=== PATIENT | female | born 1980 | race Caucasian/White ===

== ENCOUNTER 2023-10-24 06:15 | Day surgery (SDC) | payer OTHER, MEDICAID, SELFPAY ==
[2023-10-13 13:55] VITALS: BMI 41.3
[2023-10-24] VITALS (10 sets, daily range): BP systolic 94–139; BP diastolic 62–101; PULSE 83–123; RESP 14–23; TEMP 36.8–37.3; O2SAT 97–100; BMI 41.3
--- NOTE | 2023-10-24 | DI.RAD.S_ITS ---
PROCEDURE: XR KNEE RT 1TO2V INDICATIONS: POST OP TOTAL RT KNEE TECHNIQUE: 2 view(s) of the knee acquired. COMPARISON: None. FINDINGS: Bones: Patient is status post knee joint arthroplasty. Hardware components are in expected positions. Visualized bony structures are intact. Soft tissues: Overlying postoperative changes are noted. IMPRESSION: Expected post-operative appearance of a knee arthroplasty. Dictated by: Kavon Mckeon M.D. on 10/24/2023 at 12:18 Approved by: Kavon Mckeon M.D. on 10/24/2023 at 12:18
[2023-10-24] MEDS: LACTATED RINGERS 1,000 ML 42 ML IV ×2 (06:59→09:31)
[2023-10-24] MEDS: ACETAMINOPHEN 325 MG TABLET 975 MG PO (07:02)
--- NOTE | 2023-10-24 07:39 | SUR.OPER ---
Supine on padded OR bed. Pillow under head, arms secured on padded armboards <90 degree abduction. Safety belt across torso. Non-operative leg secured with tape over blanket over lower leg. Operative leg secured in DeMayo/Mark/Nathe positioner. Foam padded brace at thigh of operative leg.
--- NOTE | 2023-10-24 07:49 | PM.PREOP ---
Pre-operative Note Interval Note History & Physical reviewed/Exam performed by Physician: Yes Changes to H&P: No
[2023-10-24] MEDS: LACTATED RINGERS 1,000 ML 120 ML IV (07:50)
[2023-10-24] MEDS: CEFAZOLIN VIAL 1 GM in SODIUM CHLORIDE 0.9% 100 ML IV (08:00)
[2023-10-24] MEDS: CEFAZOLIN 2 GM/100 ML PREMIX 100 ML IV (08:00)
[2023-10-24] MEDS: ROPIVACAINE/EPI/CLONIDINE/KET 50 ML SYRINGE INJ (08:58)
[2023-10-24] MEDS: TRANEXAMIC ACID 1,000 MG VIAL 1000 MG INH ×2 (09:01→09:35)
--- NOTE | 2023-10-24 09:55 | P.OP_ITS ---
Operative Date/Time/Diagnoses Date of procedure: 10/24/23 Pre-op diagnosis: Right knee osteoarthritis Post-op diagnosis: same Procedure & Clinicians Procedure: Right total knee arthroplasty (04640) Same procedure as scheduled: Yes Surgeon: Brandon Mathew Otr Owner Operator: Sandra Quintero Anesthesia Type: General and Local Operative Notes Estimated Blood Loss (mL): 100 Tourniquet time (min): 63 Procedure in detail: Right Gap-Balanced Brett Persona Medial-Congruent Primary Total Knee Arthroplasty Implants: * Size 10 PPS Cruciate Retaining Femoral Component * Size E OsseoTi Tibial Component * Size 10 Medial Congruent Polyethylene Insert * Unresurfaced Patella Procedure Summary: This 43-year-old female patient has a BMI of 41. According to recommendations from the [employer] [employer] I did not restrict her from proceeding with total knee arthroplasty based on her weight alone but did ensure that she was optimized from all other medical parameters before proceeding with surgery. Based on her very young age I planned to utilize uncemented fixation to maximize implant longevity and to provide a biologic fixation for more robust tibial base plate stability given her high BMI. Intraoperatively I found that her bone quality was adequate to support the planned usage of uncemented fixation. From a gap balancing perspective I initially performed a +1 cut on the femur and a +6 cut off of the lateral tibia where she had the most wear. I had initially planned this cut with the extramedullary tibial guide against her tibial shaft however when I placed the drop rosalba after placement of the pins for the initial cut it appeared to have reverse slope. This was confirmed by checking with an Michael wing. I therefore re-did the tibial referencing with the extramedullary guide to obtain a more appropriate slope. Her soft tissue envelope around her lucas seemed to have made it more difficult to obtain an accurate reference in that plane and so it was checked again with an Michael wing prior to performing the resection. I initially noted that a 10 spacer block, which is the smallest size in this system, was able to fit in extension however the knee appeared to be slightly flexed. I initially planned to move forward with this cut and anticipated that release of posterior osteophytes and potentially some additional release of the posterior capsule would allow her to achieve full extension however when I came to flexion and used the gap balancing device to set external rotation it was necessary to use 60 lb of force, which was necessary in extension, in order to achieve balanced between the flexion and extension gaps. This resulted in a dramatic external rotation of the femur to 13?. Desiring to decrease that dramatic external rotation I recut the distal femur with an additional 2 mm resection. This opened up the extension gap and grossly appeared to allow full extension with the smallest size [address]. It also decreased the amount of force necessary to open the extension gap with the gap remediation bioanalytics consultant and once this was done again I found that it opened to 10 mm with only 50 lb of force. Once I transitioned up to the flexion gap again and applied 50 lb of force the femur only externally rotated to 9?. Additionally when the 4 in 1 block was placed and the tensioner was used to apply force off of the 4 in 1 cutting block, the gaps were equally balanced between the medial and lateral sides. I therefore proceeded with these components. Uncemented fixation was used. Balance was appropriate in all measured parameters at the conclusion of the procedure. Procedure in Detail: This patient was seen preoperatively and evaluated for knee pain which was refractory to numerous nonoperative treatment modalities. Their pain correlated with radiographic changes demonstrating significant degeneration in the knee joint. The risks and benefits of continued nonoperative management versus operative management were discussed at length and all of the patient?s questions were answered. Additional educational materials providing further details beyond our discussion in clinic were provided via a publicly available patient education video which included the incidence of medical complications associated with total knee arthroplasty, reasons for revision following total knee a rthroplasty, and patient satisfaction rates following total knee arthroplasty. That video can be accessed at [email or web address] . With this understanding of the risks inherent to the procedure, the patient elected to move forward with operative management. Following preoperative optimization, the patient was scheduled for surgery. The patient was met in the preoperative holding area the day of the procedure and all questions were answered. The patient?s nares were swabbed with betadine in order to decolonize them from MRSA. Informed consent was signed and the right limb was marked with indelible ink.? The patient was brought back to the operating room where anesthesia was induced. The patient was transferred to the operating table and all bony prominences were padded. The operative site was prepped and draped in the usual sterile fashion. A second prep stick was utilized following drape placement. The incision was marked corresponding to the medial aspect of the tibial tubercle and the patella. Ioban was wrapped circumferentially around the knee. Prior to incision, tranexamic acid and cefazolin were administered. Templating images were displayed. A timeout procedure was performed verifying the patient?s identity, medical comorbidities, allergies, relevant medications, anesthesia type and the surgical plan. All present were in agreement. The assistance of a physician assistant director of financial aid was required for positioning, room setup, soft tissue retraction and wound closure. Without this assistance, the procedure would have been significantly more challenging and time consuming.?? The tourniquet was inflated prior to incision. I made an anterior incision over the knee, dissected through the subcutaneous tissues and identified the lateral border of the VMO. Medial and lateral soft tissue flaps were developed. A medial parapatellar arthrotomy was performed ensuring that adequate capsular tissue would remain for closure at the conclusion of the procedure. The hip was brought into extension and the medial soft tissues were released off the joint line of the tibia. Tissue overlying the distal anterior femur was released to allow for later assessment for anterior notching but left in place. A portion of the retropatellar fat pad was excised while protecting the patellar tendon. The patella was everted. The patella was not resurfaced. Osteophytes were excised and a lateral facetectomy was performed. The patella was released from its everted position.?? I flexed the knee to 90 degrees and placed retractors to allow access to the notch. An opening reamer was used to gain access to the femoral canal and an intramedullary rosalba was introduced into the canal. Diaphyseal fit was obtained in order to allow a distal femoral resection at 5 degrees relative to the anatomic axis, thereby aiming to achieve mechanical alignment of the eventual implant. A +1 resection was planned and assessed using an michael wing. I then made the cut using a sagittal saw. This provided additional access to the femoral notch. The ACL and PCL were excised. Retractors were placed on the lateral and medial tibia. I hyperflexed the knee while externally rotating it to sublux the tibia anteriorly. I placed a PCL retractor posteriorly and used this to provide additional anterior subluxation. The remainder of the PCL root was released. An intramedullary reamer was used in the ACL footprint to provide access to the tibial canal. An extramedullary guide was positioned to allow a resection perpendicular to the anatomic and mechanical axes of the tibia, thereby aiming to achieve mechanical alignment of the eventual implant. A +6 resection of the lateral tibia was planned and the tibial cutting jig was pinned in place. I evaluated the cut depth, varus-valgus alignment and slope of the planned tibial resection and deemed them satisfactory. I cut the tibia with a sagittal saw while using retractors to protect the MCL, patellar tendon, and posterolateral structures.? The knee was repositioned in extension and the Fuzion soft tissue balancing gauge was introduced. This demonstrated that there was equal tension in the medial and lateral compartments of the knee with the knee in full extension and no additional soft tissue releases were necessary. I had initially planned this cut with the extramedullary tibial guide against her tibial shaft however when I placed the drop rosalba after placement of the pins for the initial cut it appeared to have reverse slope. This was confirmed by checking with an Michael wing. I therefore re-did the tibial referencing with the extramedullary guide to obtain a more appropriate slope. Her soft tissue envelope around her lucas seemed to have made it more difficult to obtain an accurate reference in that plane and so it was checked again with an Michael wing prior to performing the resection. I initially noted that a 10 spacer block, which is the smallest size in this sy stem, was able to fit in extension however the knee appeared to be slightly flexed. I initially planned to move forward with this cut and anticipated that release of posterior osteophytes and potentially some additional release of the posterior capsule would allow her to achieve full extension however when I came to flexion and used the gap balancing device to set external rotation it was necessary to use 60 lb of force, which was necessary in extension, in order to achieve balanced between the flexion and extension gaps. This resulted in a dramatic external rotation of the femur to 13?. Desiring to decrease that dramatic external rotation I recut the distal femur with an additional 2 mm resection. This opened up the extension gap and grossly appeared to allow full extension with the smallest size [address]. It also decreased the amount of force necessary to open the extension gap with the gap remediation bioanalytics consultant and once this was done again I found that it opened to 10 mm with only 50 lb of force. Once I transitioned up to the flexion gap again and applied 50 lb of force the femur only externally rotated to 9?. Additionally when the 4 in 1 block was placed and the tensioner was used to apply force off of the 4 in 1 cutting block, the gaps were equally balanced between the medial and lateral sides. An michael wing was used to ensure there would be no anterior notching. Retractors were placed to protect the soft tissues during resection. Captured cuts were performed with a sagittal saw for the anterior and posterior femur as well as the corresponding chamfers.? Trial components were placed and the construct was assessed. Range of motion was assessed by ensuring the knee could achieve full extension and assessing maximum passive knee flexion by elevating the femur and allowing the heel to passively fall towards the buttock. Gap symmetry was assessed by stressing the medial and lateral compartments in both extension and flexion. Laxity was assessed in both extension and flexion and the polyethylene trial was adjusted with shims as necessary. Patellar tracking was assessed with knee flexion. Once satisfied with the construct, I moved forward with implant insertion. Lug holes were drilled in the femur and the tibia was prepped ensuring appropriate sizing and rotation relative to the tibial tubercle.?? The bony ends were irrigated and cement was prepared. Portions of the anterior chamfer cut were utilized as a restrictor in the femur. I impacted the tibial component into place. The tibia was reduced underneath the femur. I placed the femoral component as well as the intended polyethylene trial. I brought the knee into extension and manually pressurized the construct by pushing on the heel . The knee was bathed in a dilute mixture of betadine and peroxide. A mixture of Ropivacaine, Epinephrine, Clonidine and Toradol was infiltrated throughout the soft tissues into structures including the VMO, patellar tendon, quadriceps tendon, MCL and femoral periosteum. A low adductor canal block was also performed using this mixture unless one had been placed preoperatively by anesthesia. The knee was copiously irrigated with pulse lavage. Range of motion was assessed by ensuring the knee could achieve full extension and assessing maximum passive knee flexion by elevating the femur and allowing the heel to passively fall towards the buttock. Gap symmetry was assessed by stressing the medial and lateral compartments in both extension and flexion. Laxity was assessed in both extension and flexion and the polyethylene trial was adjusted with shims as necessary. Patellar tracking was assessed with knee flexion. The tourniquet was let down and the polyethylene trial was removed. I inspected the knee inspected for excess cement and any residual bleeding. Once hemostasis was achieved I inserted the final polyethylene and ensured appropriate engagement of the dovetail locking mechanism.?? The arthrotomy was closed with absorbable interrupted suture ensuring that this extended to the top of the arthrotomy. This was backed up with running barbed suture throughout the arthrotomy. The skin was closed with 2-0 and 3-0 sutures. Surgical glue was applied and a soft dressing was placed.?The sponge, instrument and needle counts were reported as being correct at the end of the case.??No obvious complications occurred. The patient was transferred from the operating table back to a stretcher. The patient emerged from anesthesia without difficulty and was taken to the PACU in a stable condition.? Plan for aftercare: * Weightbearing as tolerated * Cefadroxil 500 mg twice per day for 7 days postoperatively for PJI prophylaxis given high BMI * Stephanie dressing placed to remain in place for 7 days. After 7 days the battery will at which point the cord can be removed and it can be used as a normal dressing until follow up * Aspirin 81 twice per day for DVT prophylaxis * Multimodal pain regimen with no IV opioids ordered * Patient strongly desires to return home today. We will attempt to accommodate these wishes by implementing a rapid mobilization and discharge protocol * Follow up at [facility] in 2 weeks * Detailed postoperative instructions available at [email or web address]
[2023-10-24] MEDS: HYDROMORPHONE 1 MG INJ IV ×4 (10:35→10:53)
[2023-10-24] MEDS: OXYCODONE IR 5 MG TABLET PO ×2 (10:51→11:20)
[2023-10-24] MEDS: hydrOXYzine 50 MG/ML INJ 25 MG IM (10:52)
[2023-10-24] MEDS: LORazepam 2 MG/ML INJ 0.5 MG IV (10:59)
--- NOTE | 2023-10-24 11:40 | SUR.PHASEII ---
Per Dr Mathew, patient may be discharged from Phase 2 recovery after evaluated by Physical Therapy. Order for PT placed and call placed to PT staff advising need for evaluation prior to discharge.
--- NOTE | 2023-10-24 11:55 | SUR.PHASEII ---
patient given crackers
[2023-10-24] MEDS: ACETAMINOPHEN IV 1,000 MG/100 ML VIAL 400 MG IV (12:31)
--- NOTE | 2023-10-24 12:32 | SUR.PHASEII ---
Patient c/o pain still to right knee of 6/10; all previous available pain medication given. Notified Anesthesia provider for a second order of Tylenol since first dose administered was at 0705. Orders received for Tylenol 1 gram IV now. Physical therapy at bedside to evaluate.
--- NOTE | 2023-10-24 14:18 | SUR.PHASEI ---
Block start time [time out and start [id number]] . Monitoring initiated and maintained throughout procedure. Oxygen and medications given per anesthesiologist. Patient remained stable throughout procedure, no adverse reactions noted. Block end time [1333].
== END 2023-10-24 14:00 | disposition home or self-care (01) ==
PROVIDERS: Referring Provider Orthopaedic Surgery Adult Reconstructive Orthopaedic Surgery; Visit Provider Orthopaedic Surgery Adult Reconstructive Orthopaedic Surgery
PROC: 0SRC0JZ Replacement of Right Knee Joint with Synthetic Substitute, Open Approach (ICD-10-PCS; CPT 27447; principal; 2023-10-24 07:45)
DX: M17.11 Unilateral primary osteoarthritis, right knee (principal); G89.18 Other acute postprocedural pain; M25.761 Osteophyte, right knee
CPT/HCPCS: 27447; 64450; 73560; 97110; 97116; 97161; C1776; J0136; J0690; J1100; J1170; J2060; J2250; J2405; J2704; J3410

== ENCOUNTER → 2024-01-23 15:05 | Outpatient (CLI) | payer OTHER, MEDICAID, SELFPAY ==
--- NOTE | 2024-01-23 | DI.US.S_ITS ---
PROCEDURE: US PERIPH VENOUS LOW EXTREM RT INDICATIONS: R/O DVT-POST KNEE SURGERY TECHNIQUE: Real-time imaging, as well as color and pulse Doppler interrogation, were performed of the lower extremity deep veins from the inguinal ligament to the popliteal fossa, with documentation of the visualized calf veins. COMPARISON: None. FINDINGS: The common femoral, femoral, popliteal, and the visualized calf veins are normally compressible, and free of intraluminal thrombus. Color and pulse Doppler demonstrate normal phasic intraluminal flow. There is normal augmentation response to distal compression maneuver. Limited quality visualization at the distal superficial femoral vein and in the calf region due to body habitus. IMPRESSION: No findings of lower extremity deep venous thrombosis. Dictated by: Dirk Lauren M.D. on 01/23/2024 at 16:21 Approved by: Dirk Lauren M.D. on 01/23/2024 at 16:22
== END ==
LOC: US 15:06
PROVIDERS: Referring Provider Orthopaedic Surgery Adult Reconstructive Orthopaedic Surgery; Visit Provider Orthopaedic Surgery Adult Reconstructive Orthopaedic Surgery
DX: Z96.651 Presence of right artificial knee joint (principal); Z09 Encounter for follow-up examination after completed treatment for conditions other than malignant neoplasm
CPT/HCPCS: 93971

== ENCOUNTER → 2024-08-06 11:18 | Outpatient (CLI) | payer OTHER, SELFPAY ==
--- NOTE | 2024-08-06 11:19 | DI.MRI.S_ITS ---
PROCEDURE: MR CERVICAL SPINE WO CON INDICATIONS: cervical pain TECHNIQUE: Noncontrast sagittal T1 spin echo and T2 fast spin echo, sagittal STIR, foraminal oblique sagittal T2 fast spin echo, and axial gradient echo or T2 fast spin echo through the cervical spine. COMPARISON: [facility], MR, MR CERVICAL SPINE WITHOUT CONTRAST, 12/21/2022, 15:44. FINDINGS: Image quality: Excellent. Alignment and Curvature: There is normal bony alignment. Bone Marrow: Marrow demonstrates normal overall signal. Spinal Cord: Visualized spinal cord has normal size and signal. No cerebellar tonsillar herniation. Paraspinous Soft Tissues: No paravertebral masses. Prevertebral soft tissues are normal in thickness. C2-C3: No canal stenosis or foraminal stenosis. C3-C4: Disc bulge abuts the cord. AP diameter of the central canal is 9.2 mm, grut-gq-[id number] canal stenosis. Reference axial T2 image 23 of series 4. Bilateral uncovertebral joint hypertrophy, quite prominent on the left. There is moderate right foraminal narrowing with flattening deformity on the exiting right C3 nerve root. There is severe left foraminal narrowing with left foraminal C4 nerve root impingement. Reference axial T2 image 21 of series 4 and left foraminal oblique image 6 of series 7. C4-C5: Disc bulge with mild superimposed central posterior disc protrusion. Disc material abuts the cord. Moderate central canal stenosis. AP diameter of the central canal is 8.5 mm. Bilateral uncovertebral joint hypertrophy. There severe bilateral foraminal narrowing with bilateral foraminal C5 nerve root impingement. C5-C6: Similar findings to previous. There is a large right paracentral posterior disc protrusion indenting on the ventral cord. There is severe canal stenosis. AP diameter of the central canal measures 6.3 mm. There is bilateral uncovertebral joint hypertrophy. There is moderate right foraminal narrowing and moderate to severe left foraminal narrowing with a degree of left foraminal C6 nerve root impingement. C6-C7: Similar to previous. A moderately large left paracentral disc protrusion severely impinges on the left ventral cord. Reference axial image 38 of series 4 and sagittal image 10 of series 3. There is moderate to severe central canal stenosis, with the AP diameter of the central canal measuring 7.7 mm. There is severe narrowing on the left side of the canal. Mild left foraminal narrowing. C7-T1: No canal stenosis or foraminal stenosis. IMPRESSION: 1. Diffuse cervical spondylitic change. Findings not significantly changed from the previous study. 2. Canal stenosis is mild to moderate at C3-C4, moderate at C4-C5, severe at C5-C6, and moderate to severe at C6-C7. There is severe narrowing of the left side of the canal at C6-C7. 3. A large right paracentral disc protrusion at C5-C6 and a large left paracentral disc protrusion at C6-C7 are unchanged. Both of these disc protrusions impinge on the cord. 4. Significant multilevel foraminal narrowing as described above. Findings include severe left foraminal narrowing at C3-C4, severe bilateral foraminal narrowing at C4-C5, and moderate to severe left foraminal narrowing at C5-C6. Dictated by: Avila Snowden M.D. on 08/07/2024 at 22:33 Approved by: Avila Snowden M.D. on 08/07/2024 at 22:45
== END ==
LOC: MRI 11:19
PROVIDERS: Referring Provider Physician Assistant; Visit Provider Physician Assistant
DX: M47.812 Spondylosis without myelopathy or radiculopathy, cervical region (principal); M48.02 Spinal stenosis, cervical region; M50.222 Other cervical disc displacement at C5-C6 level; M50.30 Other cervical disc degeneration, unspecified cervical region; M62.838 Other muscle spasm; R20.2 Paresthesia of skin; R26.89 Other abnormalities of gait and mobility
CPT/HCPCS: 72141

== ENCOUNTER → 2024-09-03 11:43 | Outpatient (CLI) | payer OTHER, SELFPAY ==
--- NOTE | 2024-09-03 11:45 | DI.CT.S_ITS ---
PROCEDURE: CT CERVICAL SPINE WO CON INDICATIONS: CERVICAL MYELOPATHY TECHNIQUE: Noncontrast 3 mm thick sections acquired from the skull base to the T4 level. Sagittal and coronal reformats were then constructed. For radiation dose reduction, the following was used: automated exposure control, adjustment of mA and/or kV according to patient size. COMPARISON: [facility], MR, MR CERVICAL SPINE WO CON, 08/06/2024, 11:27. FINDINGS: Image quality: Excellent. Bones: No fractures or dislocations. Straightening of the normal cervical lordosis. Multilevel degenerative changes of the cervical spine, better evaluated on recent prior MRI. Visualized superior ribs are intact. Soft tissues: Prevertebral soft tissues are normal in thickness. No paravertebral hematomas. No apical pneumothoraces. IMPRESSION: No acute osseous abnormalities. Multilevel degenerative changes of the cervical spine are redemonstrated, better evaluated on recent prior MRI. Dictated by: Vincent Villegas M.D. on 09/04/2024 at 13:21 Approved by: Vincent Villegas M.D. on 09/04/2024 at 13:24
== END ==
PROVIDERS: PCP Orthopaedic Surgery Orthopaedic Surgery of the Spine; Referring Provider Orthopaedic Surgery Orthopaedic Surgery of the Spine; Visit Provider Orthopaedic Surgery Orthopaedic Surgery of the Spine
DX: G95.9 Disease of spinal cord, unspecified (principal); M54.12 Radiculopathy, cervical region; M89.8X8 Other specified disorders of bone, other site
CPT/HCPCS: 72125

== ENCOUNTER → 2024-09-30 13:11 | Outpatient (CLI) | payer OTHER, SELFPAY ==
[2024-09-30 14:07] LABS: Add Manual Diff / Slide Review NO; Basophils Absolute Auto 100 /uL (0-100); Eosinophils Absolute Auto 100 /uL (0-450); Eosinophils Percent Auto 1.5 % (2-4); Hematocrit 41.1 % (36-46); Hemoglobin 13.9 g/dL (12.0-16.0); Lymphocytes Absolute Auto 2100 /uL (1100-4500); Lymphocytes Percent Auto 27.3 % (25-40); Mean Corpuscular HGB Conc 33.9 % (30-36); Mean Corpuscular Hemoglobin 31.1 PG (26-34); Mean Corpuscular Volume 91.7 fL (80-100); Monocytes Absolute Auto 400 /uL (0-900); Monocytes Percent Auto 5.8 % (3-14); Neutrophils Absolute Auto 4900 /uL (1500-7000); Neutrophils Percent Auto 64.4 % (50-75); Platelet Count 399 X10^3/uL (150-400); Red Blood Cell Count 4.48 X10^6/uL (4.0-5.2); Red Cell Distribution Width 13.6 % (11.6-14.8); White Blood Cell Count 7.6 X10^3/uL (4.5-11.0)
[2024-09-30 14:17] LABS: BUN Creatinine Ratio 22.4 (6-22); Blood Urea Nitrogen 17 mg/dL (7-17); Calcium 9.9 mg/dL (8.4-10.2); Carbon Dioxide 23 mmol/L (22-32); Chloride 106 mmol/L (98-107); Estimated Glomerular Filt Rate > 60 mL/min (>60); Glucose 100 mg/dL (70-99); HEMOLYSIS < 15 (0-50); Potassium 4.4 mmol/L (3.4-5.1); Sodium 139 mmol/L (137-145)
== END ==
PROVIDERS: PCP Orthopaedic Surgery Orthopaedic Surgery of the Spine; Referring Provider Orthopaedic Surgery Orthopaedic Surgery of the Spine; Visit Provider Orthopaedic Surgery Orthopaedic Surgery of the Spine
DX: G95.9 Disease of spinal cord, unspecified (principal); M54.12 Radiculopathy, cervical region; M54.2 Cervicalgia
CPT/HCPCS: 36415; 80048; 85025